=== PATIENT | female | born 1940 | race Caucasian/White ===

== ENCOUNTER → 2020-02-07 | Outpatient (CLI) | payer MEDICARE | LOC: LAB FS 10:09 | PROVIDERS: ATTEND Pain Medicine Interventional Pain Medicine | DX: Z01.812 Encounter for preprocedural laboratory examination (principal); Z20.828 Contact with and (suspected) exposure to other viral communicable diseases | CPT/HCPCS: 87635 ==

== ENCOUNTER → 2020-03-23 | Outpatient (CLI) | payer MEDICARE | LOC: LAB FS 10:52 | PROVIDERS: ATTEND Orthopaedic Surgery | DX: Z01.812 Encounter for preprocedural laboratory examination (principal); Z20.828 Contact with and (suspected) exposure to other viral communicable diseases | CPT/HCPCS: 87635 ==

== ENCOUNTER → 2020-12-22 | Outpatient (CLI) | payer MEDICARE ==
--- NOTE | 2020-12-22 11:39 | Diagnostic Imaging Report ---
INDICATION: Back pain 3 views were obtained. FINDINGS: There is moderate left convexity lumbar degenerative rotoscoliosis. There is slight anterolisthesis of L5 on S1. Vertebral body heights are well-maintained. There is lower lumbar hypertrophic degenerative facet disease. IMPRESSION: Severe lumbar spondylosis and degenerative disc disease with left convexity rotoscoliosis. Dictated by: Dictated on workstation # [id number]
== END ==
LOC: RAD FS 09:10
PROVIDERS: ATTEND Nurse Practitioner
DX: M47.816 Spondylosis without myelopathy or radiculopathy, lumbar region (principal); M51.36 Other intervertebral disc degeneration, lumbar region; M41.86 Other forms of scoliosis, lumbar region
CPT/HCPCS: 72100

== ENCOUNTER → 2021-10-20 | Outpatient (CLI) | payer MEDICARE ==
[2021-10-20 11:30] LABS: ALKALINE PHOSPHATASE 85 U/L (40-136); BILIRUBIN,TOTAL 0.2 MG/DL (0.1-1.0); BUN/CREATININE RATIO 17; CALCIUM 9.9 MG/DL (8.5-10.1); CARBON DIOXIDE 26 MMOL/L (21-32); CHLORIDE 92 MMOL/L (98-107); CREATININE SERUM 0.95 MG/DL (0.60-1.30); GFR ESTIMATED 61; GLUCOSE 97 MG/DL (70-105); POTASSIUM 4.3 MMOL/L (3.6-5.0); SODIUM 129 MMOL/L (135-145)
[2021-10-20 11:31] LABS: ALANINE AMINOTRANSFERASE 18 U/L (0-55); ALBUMIN 4.6 GM/DL (3.2-4.5); TOTAL PROTEIN 7.3 GM/DL (6.4-8.2)
--- NOTE | 2021-10-20 14:15 | Diagnostic Imaging Report ---
CLINICAL INDICATION: Patient with chronic low back pain that radiates down the left leg. Patient has history of osteoarthritis and degenerative disc disease. EXAM: Axial CT scan of the lumbar spine without contrast. Sagittal and coronal reformatted images are created. Auto Exposure Controls were utilized during the CT exam to meet ALARA standards for radiation dose reduction. COMPARISON: X-ray of the lumbar spine dated 12/22/2020. FINDINGS: There is no acute lumbar spine fracture. There is roughly 41 degrees of levorotoscoliosis of the lumbar spine with apex at the L2-L3 disc space region. There are moderate to severely hypertrophic spurs throughout the lumbar spine and multilevel facet arthropathy. T12-L1: There is a diffuse disc bulge and mild bilateral facet arthropathy. There is no significant central canal stenosis. There is mild right neural foramen narrowing and no significant left neural foramen narrowing. L1-L2: There is a diffuse disc bulge with severe loss of disc space height and hypertrophic far lateral disc spurs. There is severe right facet arthropathy and mild left facet arthropathy. There is no significant central canal stenosis. There is no significant left neural foramen narrowing and severe right neural foramen narrowing. L2-L3: There is a diffuse disc bulge with severe loss of disc space height involving the right side with hypertrophic far lateral disc spurs. There is severe right facet arthropathy/hypertrophy and moderate left facet arthropathy. There is at least olfu-xz-vbdrqegi central canal stenosis. There is no significant left neural foramen narrowing and severe right neural foramen narrowing. L3-L4: There is grade 1 anterolisthesis of L3 on L4. There is a diffuse disc bulge with severe loss of disc space height with endplate sclerosis and irregularity. There is severe right neural foramen narrowing and no significant left neural foramen narrowing. There is severe bilateral facet arthropathy/hypertrophy. There is at least moderate central canal stenosis. L4-L5: There is a diffuse disc bulge with severe loss of disc space height. There is severe bilateral facet arthropathy with hypertrophic changes on the left side. There is moderate right neural foramen narrowing and sadhjhwz-[id number]-ddlbdt left neural foramen narrowing. There is at least mild central canal stenosis. L5-S1: There is grade 1 anterolisthesis of L5 on S1. There is a diffuse disc bulge and severe bilateral facet arthropathy/hypertrophy. There is at least mild central canal narrowing. There is severe left neural foramen narrowing and no significant right neural foramen narrowing. IMPRESSION: There is levorotoscoliosis of the lumbar spine with severe multilevel lumbar spine degenerative disc disease which is described in detail above. Dictated by: Dictated on workstation # [id number]
== END ==
LOC: RAD FS 10:17
PROVIDERS: ATTEND Nurse Practitioner Family
DX: M47.815 Spondylosis without myelopathy or radiculopathy, thoracolumbar region (principal); M47.816 Spondylosis without myelopathy or radiculopathy, lumbar region; M47.817 Spondylosis without myelopathy or radiculopathy, lumbosacral region; M51.25 Other intervertebral disc displacement, thoracolumbar region; M51.26 Other intervertebral disc displacement, lumbar region; M51.27 Other intervertebral disc displacement, lumbosacral region; M51.36 Other intervertebral disc degeneration, lumbar region; M48.061 Spinal stenosis, lumbar region without neurogenic claudication; M48.05 Spinal stenosis, thoracolumbar region; M48.07 Spinal stenosis, lumbosacral region; M43.16 Spondylolisthesis, lumbar region; M43.17 Spondylolisthesis, lumbosacral region
CPT/HCPCS: 36415; 72131; 80053

== ENCOUNTER → 2022-07-18 | Outpatient (CLI) | payer MEDICARE ==
[2022-07-18 13:50] LABS: CREATININE SERUM 0.89 MG/DL (0.60-1.30); POTASSIUM 4.9 MMOL/L (3.6-5.0)
[2022-07-18 13:51] LABS: ALBUMIN 4.2 GM/DL (3.2-4.5); BILIRUBIN,TOTAL 0.2 MG/DL (0.1-1.0); CALCIUM 9.5 MG/DL (8.5-10.1); TOTAL PROTEIN 6.8 GM/DL (6.4-8.2)
== END ==
LOC: LAB FS 12:23
PROVIDERS: ATTEND Nurse Practitioner Family
DX: E87.1 Hypo-osmolality and hyponatremia (principal)
CPT/HCPCS: 36415; 80053

== ENCOUNTER 2022-07-19 10:40 | Emergency (ER) | payer MEDICARE ==
[~2022-07-19] VITALS: Ht 152 cm; Wt 53.5 kg
[2022-07-19 11:03] LABS: BILIRUBIN,URINE NEGATIVE (NEGATIVE); CLARITY,URINE CLEAR; COLOR,URINE YELLOW; GLUCOSE, URINE (UA) NEGATIVE (NEGATIVE); KETONES,URINE NEGATIVE (NEGATIVE); LEUKOCYTE ESTERASE ,URINE NEGATIVE (NEGATIVE); NITRITE,URINE NEGATIVE (NEGATIVE); PH,URINE 6.5 (5-9); PROTEIN,URINE NEGATIVE (NEGATIVE)
[2022-07-19 11:11] LABS: BASOPHILS % (AUTO) 1 % (0-10); EOSINOPHILS # (AUTO) 0.1 10^3/uL (0.0-0.3); EOSINOPHILS % (AUTO) 1 % (0-10); HEMATOCRIT 31 % (35-52); HEMOGLOBIN 10.9 g/dL (11.5-16.0); LYMPHOCYTES # (AUTO) 1.5 10^3/uL (1.0-4.0); LYMPHOCYTES % (AUTO) 21 % (12-44); MEAN CORPUSCULAR HEMOGLOBIN 32 pg (25-34); MEAN CORPUSCULAR HGB CONC 35 g/dL (32-36); MEAN CORPUSCULAR VOLUME 91 fL (80-99); MEAN PLATELET VOLUME 9.2 fL (9.0-12.2); MONOCYTES # (AUTO) 0.5 10^3/uL (0.0-1.0); MONOCYTES % (AUTO) 7 % (0-12); NEUTROPHILS # (AUTO) 4.9 10^3/uL (1.8-7.8); NEUTROPHILS % (AUTO) 70 % (42-75); PLATELET COUNT 344 10^3/uL (130-400)
[2022-07-19 11:19] LABS: BACTERIA,URINE NEGATIVE /HPF; SQUAMOUS EPITHELIAL CELL,UR RARE /HPF; WBC,URINE RARE /HPF
--- NOTE | 2022-07-19 11:27 | ED General ---
General Chief Complaint: General Problems/Pain Stated Complaint: ABNORMAL TEST RESULTS Nursing Triage Note: PT AMB TO RM 6 PT WAS SENT TO ED FROM [facility]. PT HAS ABN LAB WORK RESULTS. Source of Information: Patient History of Present Illness Date Seen by Provider: Jul 19, 2022 Time Seen by Provider: 10:55 Initial Comments PT ARRIVES VIA POV FROM HOME IN [place] PT HAD ROUTINE LAB DONE AT [facility] YESTERDAY, FOR UPCOMING ROUTINE WELLNESS EXAM NEXT WEEK SHE WAS CONTACTED YESTERDAY AND TOLD TO GO TO [place] [facility] FOR REPEAT LAB. SHE WAS CONTACTED AGAIN TODAY, REGARDING LAB DONE YESTERDAY, AND TOLD TO COME HERE TO [facility], HER SODIUM LEVEL WAS LOW PT HAS NOT HAD ANY CHANGES IN MEDICATIONS OR DIET. SHE HAS ONLY CHRONIC PHYSICAL COMPLAINTS OF BACK PAIN AND CONSTIPATION SHE STATES FOR SEVERAL WEEKS, SHE HAS NOTICED THAT SHE HAS HAD A LITTLE DIFFICULTY REMEMBERING SOME PEOPLE'S NAMES, BUT OTHERWISE NO MEMORY IMPAIRMENT OR CONFUSION THAT SHE IS AWARE OF SHE STATES FOR THE LAST 6 MONTHS, SHE HAS HAD SOME DIFFICULTY FOCUSING WITH HER VISION, SINCE GETTING [place] 6 MONTHS AGO--SHE HAS NOT ATTEMPTED TO CONTACT HER EYE DR. SHE HAS HISTORY OF HTN--DOES NOT REMEMBER NAME OF BP MEDICATION, CHRONIC PAIN--ESPECIALLY BACK PAIN --AND IS OPIATE DEPENDENT. SHE TAKES HYDROCODONE, XANAX AND LYRICA DAILY. SHE ALSO TAKES MIRALAX DAILY FOR CHRONIC CONSTIPATION SHE HAS HAD A COMPLETE COLECTOMY FOR CHRONIC CONSTIPATION, AND HYSTERECTOMY/BSO, WELL LOW BACK SURGERY. SHE DENIES SMOKING, ALCOHOL OR DRUG USE. NO FEVER OR RECENT ILLNESS PT HAS HAD COVID VACCINE X 3, AND FLU VACCINE FOR THIS SEASON PCP: [facility] Review of Systems Review of Systems Constitutional: no symptoms reported; No chills, No diaphoresis, No dizziness, No fever, No malaise, No weakness EENTM: see HPI Respiratory: no symptoms reported; No cough, No short of breath Cardiovascular: no symptoms reported; No chest pain, No edema, No palpitations, No syncope, No vascular heart diseas Gastrointestinal: see HPI; No abdominal pain; constipation; No diarrhea, No loss of appetite, No nausea, No vomiting Genitourinary: no symptoms reported Musculoskeletal: see HPI, back pain Skin: no symptoms reported Psychiatric/Neurological: See HPI; Denies Headache, Denies Numbness, Denies Paresthesia, Denies Seizure, Denies Tingling, Denies Tremors, Denies Weakness Hematologic/Lymphatic: No Symptoms Reported Immunological/Allergic: no symptoms reported Past Omiakkc-Xlkudr-Xfyvji Hx Patient Social History Tobacco Use?: No Smoking Status: Never a Smoker Smokeless Tobacco Frequency: Never a User Use of E-Cig and/or Vaping Neal: Never a User Substance use?: No Alcohol Use?: No Pt feels they are or have been: No Immunizations Up To Date Influenza Vaccine Up-to-Date: Yes; Up-to-Date First/Initial COVID19 Vaccinat: YES Second COVID19 Vaccination Manuel: YES Third COVID19 Vaccination Date: YES Past Medical History Surgery/Hospitalization HX: HTN, HX OF LOW NA+ FEW YEARS AGO, CHRONIC BACK PAIN,HYST, COLON RESECTION,BACK SURG Surgeries: Yes Bowel Surgery, Hysterectomy, Oophorectomy, Orthopedic Respiratory: No Cardiac: Yes Hypertension 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 oz. kg; 23.00 BMI Method: General Appearance: No Apparent Distress, WD/WN, Other (PLEASANT, DOES NOT APPEAR ILL OR TO BE IN ANY DISCOMFORT OR DISTRESS) HEENT: PERRL/EOMI; No Pale Conjunctivae (L), No Pale Conjunctivae (R), No Scleral Icterus (L), No Scleral Icterus (R) Neck: Normal Inspection Respiratory: Normal Breath Sounds, No Accessory Muscle Use, No Respiratory Distress Cardiovascular: Regular Rate, Rhythm, No Edema, No JVD, No Murmur, Normal Peripheral Pulses Gastrointestinal: Non Tender, Soft Extremity: Normal Capillary Refill, Normal Inspection, Normal Range of Motion, Non Tender, No Calf Tenderness, No Pedal Edema Neurologic/Psychiatric: Alert, Oriented x3, No Motor/Sensory Deficits, Normal Mood/Affect, 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 Norm as Tested, Other (NO NOTICEABLE SIGNIFICANT MEMORY IMPAIRMENT) Skin: Normal Color, Warm/Dry; No Rash Progress/Results/Core Measures Suspected Sepsis SIRS Temperature: Pulse: 82 Respiratory Rate: 16 Laboratory Tests 07/19/22 11:00: White Blood Count 7.0 Blood Pressure 172 /102 Mean: 125 Laboratory Tests 07/19/22 11:00: Creatinine 0.80, Platelet Count 344, Total Bilirubin 0.3 Results/Orders Lab Results Laboratory Tests Test 07/19/22 10:57 07/19/22 11:00 Range/Units Urine Color YELLOW Urine Clarity CLEAR Urine pH 6.5 5-9 Urine Specific [place] <=1.005 1.016-1.022 Urine Protein NEGATIVE NEGATIVE Urine Glucose (UA) NEGATIVE NEGATIVE Urine Ketones NEGATIVE NEGATIVE Urine Nitrite NEGATIVE NEGATIVE Urine Bilirubin NEGATIVE NEGATIVE Urine Urobilinogen 0.2 < = 1.0 MG/DL Urine Leukocyte Esterase NEGATIVE NEGATIVE Urine RBC (Auto) NEGATIVE NEGATIVE Urine RBC NONE /HPF Urine WBC RARE /HPF Urine Squamous Epithelial Cells RARE /HPF Urine Crystals NONE /LPF Urine Bacteria NEGATIVE /HPF Urine Casts NONE /LPF Urine Mucus NEGATIVE /LPF Urine Culture Indicated NO White Blood Count 7.0 4.3-11.0 10^3/uL Red Blood Count 3.43 L 3.80-5.11 10^6/uL Hemoglobin 10.9 L 11.5-16.0 g/dL Hematocrit 31 L 35-52 % Mean Corpuscular Volume 91 80-99 fL Mean Corpuscular Hemoglobin 32 25-34 pg Mean Corpuscular Hemoglobin Concent 35 32-36 g/dL Red Cell Distribution Width 13.8 10.0-14.5 % Platelet Count 344 130-400 10^3/uL Mean Platelet Volume 9.2 9.0-12.2 fL Immature Granulocyte % (Auto) 0 % Neutrophils (%) (Auto) 70 42-75 % Lymphocytes (%) (Auto) 21 12-44 % Monocytes (%) (Auto) 7 0-12 % Eosinophils (%) (Auto) 1 0-10 % Basophils (%) (Auto) 1 0-10 % Neutrophils # (Auto) 4.9 1.8-7.8 10^3/uL Lymphocytes # (Auto) 1.5 1.0-4.0 10^3/uL Monocytes # (Auto) 0.5 0.0-1.0 10^3/uL Eosinophils # (Auto) 0.1 0.0-0.3 10^3/uL Basophils # (Auto) 0.0 0.0-0.1 10^3/uL Immature Granulocyte # (Auto) 0.0 0.0-0.1 10^3/uL Sodium Level 129 L 135-145 MMOL/L Potassium Level 4.0 3.6-5.0 MMOL/L Chloride Level 96 L 98-107 MMOL/L Carbon Dioxide Level 25 21-32 MMOL/L Anion Gap 8 5-14 MMOL/L Blood Urea Nitrogen 14 7-18 MG/DL Creatinine 0.80 0.60-1.30 MG/DL Estimat Glomerular Filtration Rate 74 BUN/Creatinine Ratio 18 Glucose Level 87 70-105 MG/DL Calcium Level 9.3 8.5-10.1 MG/DL Corrected Calcium 9.3 8.5-10.1 MG/DL Magnesium Level 2.0 1.6-2.4 MG/DL Total Bilirubin 0.3 0.1-1.0 MG/DL Aspartate Amino Transf (AST/SGOT) 40 H 5-34 U/L Alanine Aminotransferase (ALT/SGPT) 36 0-55 U/L Alkaline Phosphatase 69 40-136 U/L Total Protein 6.8 6.4-8.2 GM/DL Albumin 4.0 3.2-4.5 GM/DL My Orders Orders - JUNIOR WALSH DO Ed Iv/Invasive Line Start (07/19/22 10:45) Monitor-Rhythm Ecg Trace Only (07/19/22 10:45) Cbc With Automated Diff (07/19/22 10:45) Comprehensive Metabolic Panel (07/19/22 10:45) Magnesium (07/19/22 10:45) Ua Culture If Indicated (07/19/22 10:45) Vital Signs/I&O 07/19/22 10:55 Temp 35.7 Pulse 82 Resp 16 B/P (MAP) 172/102 (125) Pulse Ox 100 Capillary Refill : Less Than 3 Seconds Blood Pressure Mean: 125 Progress Note : Progress Note NO PRIOR VISITS, BUT DID HAVE OUTPATIENT LAB DONE 10/20/2021, AND SODIUM LEVEL WAS 129 AT THAT TIME ALSO. PT LATER STATES THAT SHE HAS HAD LOW SODIUM LEVELS IN THE PAST. UNEVENTFL ER STAY. VITALS STABLE PT ASYMPTOMATIC. DISCUSSED TEST RESULTS, NEED FOR FOLLOW UP AND RETURN PRECAUTIONS. Departure Communication (Admissions) [id number]--SPOKE WITH DR MILLER, SHE ADVISES TO SEND HOME, AND SHE WILL HAVE PT FOLLOW UP IN CLINIC FOR FURTHER EVALUATION Impression Primary Impression: Hyponatremia Disposition: HOME, SELF-CARE Condition: Stable Departure-Patient Inst. Decision time for Depature: 11:54 Referrals: SUSIE ESPINOSA APRN (PCP) Primary Care Physician [facility] (Family) Primary Care Physician ELI MILLER MD Patient Instructions: Hyponatremia (DC) Add. Discharge Instructions: CONTINUE YOUR REGULAR MEDICATIONS INCREASE SODIUM IN YOUR DIET [facility]. All discharge instructions reviewed with patient and/or family. Voiced understanding. JUNIOR WALSH DO Jul 19, 2022 11:27
[2022-07-19 11:29] LABS: CALCIUM 9.3 MG/DL (8.5-10.1)
[2022-07-19 11:30] LABS: TOTAL PROTEIN 6.8 GM/DL (6.4-8.2)
[2022-07-19 11:32] LABS: BILIRUBIN,TOTAL 0.3 MG/DL (0.1-1.0)
[2022-07-19 11:34] LABS: CREATININE SERUM 0.8 MG/DL (0.60-1.30)
[2022-07-19 12:04] VITALS: BP 148/82
== END 2022-07-19 12:05 | disposition home or self-care (01) ==
LOC: EDUNIT# 10:40 → ER 10:42
DX: E87.1 Hypo-osmolality and hyponatremia (principal); I10 Essential (primary) hypertension; M54.9 Dorsalgia, unspecified; K59.09 Other constipation; Z79.891 Long term (current) use of opiate analgesic; Z79.899 Other long term (current) drug therapy
CPT/HCPCS: 36415; 80053; 81000; 83735; 85025; 93041